=== PATIENT | female | born 1990 | race African-American/Black ===

== ENCOUNTER 2017-09-03 23:07 | Emergency (ER) | payer MEDICAID ==
[~2017-09-03] VITALS: Ht 172.7 cm; Wt 68.0 kg
[2017-09-03] MEDS ORDERED: FAMOTIDINE 20MG/2ML VIAL IV STA (23:54)
[2017-09-03] MEDS ORDERED: SODIUM CHLORIDE 0.9% 1,000 ML IV ONE (23:54)
[2017-09-03] MEDS ORDERED: MAGNESIUM/ALUMINUM HYDROXIDE/SIMETHICONE 30ML UDC PO STA (23:54)
[2017-09-04] MEDS ORDERED: ONDANSETRON HCL 4MG/2ML VIAL IV ONE
[2017-09-04 00:19] LABS: CLARITY URINE CLEAR (CLEAR); COLOR URINE YELLOW (YELLOW); KETONES URINE 3+ (NEGATIVE); LEUKOCYTE ESTERASE URINE NEGATIVE (NEGATIVE); NITRITE URINE NEGATIVE (NEGATIVE); OCCULT BLOOD URINE NEGATIVE (NEGATIVE); PH URINE >=9.0 (4.5-8.0); PROTEIN URINE NEGATIVE (NEGATIVE); SPECIFIC GRAVITY URINE 1.025 (1.005-1.030); UROBILINOGEN URINE 0.2 E.U./dL (0.2-1.0)
[2017-09-04 00:33] LABS: *AMPHETAMINES SCREEN URINE NEGATIVE (NEGATIVE); *BARBITURATES SCREEN URINE NEGATIVE (NEGATIVE); *BENZODIAZEPINES SCREEN URINE NEGATIVE (NEGATIVE); *COCAINE SCREEN URINE NEGATIVE (NEGATIVE); METHADONE URINE SCREEN NEGATIVE (NEGATIVE); PHENCYCLIDINE URINE SCREEN NEGATIVE (NEGATIVE)
[2017-09-04 00:42] LABS: BASOPHILS % 0.6 % (0.0-2.0); EOSINOPHILS % 0.2 % (0.0-5.0); HEMATOCRIT. 40.3 % (36.0-48.0); HEMOGLOBIN. 13.4 g/dL (12.0-16.0); LYMPHOCYTES % 21.9 % (20.0-50.0); MEAN CORPUSCULAR HEMOGLOBIN 29.3 pg (28.0-32.0); MEAN CORPUSCULAR VOLUME 88.1 fL (81.0-99.0); MEAN PLATELET VOLUME 10.2 fl (7.4-10.4); MONOCYTES % 6.7 % (2.0-8.0); NEUTROPHILS % 70.6 % (40.0-76.0); PLATELET 168 x1000/uL (130-400); RED BLOOD CELL COUNT 4.58 mill/uL (4.2-5.4); RED CELL DISTRIBUTION WIDTH 13.9 % (11.6-14.6)
[2017-09-04 00:42] LABS: CANNABINOID URINE SCREEN PRESUMTIVE POSITIVE (NEGATIVE); OPIATES URINE SCREEN PRESUMTIVE POSITIVE (NEGATIVE)
[2017-09-04 00:44] LABS: CHLORIDE 108 mEq/L (98-107)
[2017-09-04 00:47] LABS: INR 1.1; PROTHROMBIN TIME 11.8 sec (9.4-11.6)
[2017-09-04] MEDS ORDERED: HALOPERIDOL 2MG TABLET PO NR (01:15)
[2017-09-04] MEDS ORDERED: MORPHINE SULFATE 4 MG/ML CPJ (NOT FOR IM USE) IV NR (01:15)
[2017-09-04 02:45] VITALS: BP 125/85
== END 2017-09-04 02:48 | disposition home or self-care (01) ==
LOC: ER 23:07
DX: K29.00 Acute gastritis without bleeding (principal); F12.10 Cannabis abuse, uncomplicated; F19.10 Other psychoactive substance abuse, uncomplicated
CPT/HCPCS: 36415; 80053; 80305; 81003; 81025; 83690; 85025; 85610; 93005; 96361; 96374; 96375; 99285; J2270; J2405; J3490; J7030; Z7610

== ENCOUNTER 2017-09-04 04:49 | Emergency (ER) | payer MEDICAID ==
[~2017-09-04] VITALS: Ht 170.2 cm; Wt 78.0 kg
[2017-09-04] MEDS ORDERED: MORPHINE SULFATE 4 MG/ML CPJ (NOT FOR IM USE) IV STA (10:11)
[2017-09-04] MEDS ORDERED: ONDANSETRON HCL 4MG/2ML VIAL IV STA (10:11)
[2017-09-04] MEDS ORDERED: SODIUM CHLORIDE 0.9% 1,000 ML IV ONE (10:11)
[2017-09-04] MEDS ORDERED: KETOROLAC 30MG/ML VIAL IV STA (10:11)
[2017-09-04] MEDS ORDERED: FAMOTIDINE 20MG/2ML VIAL IV STA (10:11)
[2017-09-04] MEDS ORDERED: MAGNESIUM/ALUMINUM HYDROXIDE/SIMETHICONE 30ML UDC PO STA (10:11)
[2017-09-04 10:47] LABS: BASOPHILS % 0.4 % (0.0-2.0); CHLORIDE 103 mEq/L (98-107); EOSINOPHILS % 0.1 % (0.0-5.0); HEMATOCRIT. 43.8 % (36.0-48.0); HEMOGLOBIN. 14.5 g/dL (12.0-16.0); LYMPHOCYTES % 12.1 % (20.0-50.0); MEAN CORPUSCULAR HEMOGLOBIN 28.6 pg (28.0-32.0); MEAN CORPUSCULAR VOLUME 86.1 fL (81.0-99.0); MONOCYTES % 3.1 % (2.0-8.0); NEUTROPHILS % 84.3 % (40.0-76.0); PLATELET 196 x1000/uL (130-400); RED BLOOD CELL COUNT 5.08 mill/uL (4.2-5.4); RED CELL DISTRIBUTION WIDTH 13.8 % (11.6-14.6)
[2017-09-04 10:52] LABS: ETHANOL BLOOD < 10 mg/dL
[2017-09-04 10:54] LABS: INR 1.1; PROTHROMBIN TIME 11.2 sec (9.4-11.6)
[2017-09-04 10:57] LABS: CLARITY URINE CLEAR (CLEAR); COLOR URINE YELLOW (YELLOW); KETONES URINE 3+ (NEGATIVE); LEUKOCYTE ESTERASE URINE NEGATIVE (NEGATIVE); NITRITE URINE NEGATIVE (NEGATIVE); OCCULT BLOOD URINE NEGATIVE (NEGATIVE); PH URINE 5.5 (4.5-8.0); PROTEIN URINE NEGATIVE (NEGATIVE); SPECIFIC GRAVITY URINE 1.025 (1.005-1.030); UROBILINOGEN URINE 0.2 E.U./dL (0.2-1.0)
[2017-09-04 11:12] LABS: HCG SCREEN NEGATIVE
[2017-09-04 14:05] VITALS: BP 121/70
== END 2017-09-04 15:06 | disposition home or self-care (01) ==
LOC: ER 10:40
DX: K29.70 Gastritis, unspecified, without bleeding (principal); E86.0 Dehydration; F12.10 Cannabis abuse, uncomplicated; F13.10 Sedative, hypnotic or anxiolytic abuse, uncomplicated
CPT/HCPCS: 36415; 71045; 76705; 80053; 81003; 83690; 84703; 85025; 85610; 96361; 96374; 96375; 99285; G0482; J1885; J2270; J3490; J7030; Z7610

== ENCOUNTER 2018-04-01 22:00 | Emergency (ER) | payer MEDICAID ==
[~2018-04-01] VITALS: Ht 165.1 cm; Wt 63.0 kg
[2018-04-02 00:59] LABS: BASOPHILS % 0.6 % (0.0-2.0); EOSINOPHILS % 0.6 % (0.0-5.0); HEMATOCRIT. 36.8 % (36.0-48.0); HEMOGLOBIN. 12.2 g/dL (12.0-16.0); LYMPHOCYTES % 25.9 % (20.0-50.0); MEAN CORPUSCULAR HEMOGLOBIN 28.9 pg (28.0-32.0); MEAN CORPUSCULAR VOLUME 87.3 fL (81.0-99.0); MEAN PLATELET VOLUME 9.1 fl (7.4-10.4); MONOCYTES % 9.1 % (2.0-8.0); NEUTROPHILS % 63.8 % (40.0-76.0); PLATELET 197 x1000/uL (130-400); RED BLOOD CELL COUNT 4.21 mill/uL (4.2-5.4); RED CELL DISTRIBUTION WIDTH 13.5 % (11.6-14.6)
[2018-04-02 01:06] LABS: CHLORIDE 104 mEq/L (98-107)
[2018-04-02 01:23] LABS: B-HCG QUANTITATIVE 146083 mIU/mL (<3)
[2018-04-02 01:56] VITALS: BP 98/58
== END 2018-04-02 01:59 | disposition home or self-care (01) ==
LOC: ER 22:00
DX: O20.0 Threatened abortion (principal); Z3A.01 Less than 8 weeks gestation of pregnancy; O30.001 Twin pregnancy, unspecified number of placenta and unspecified number of amniotic sacs, first trimester; O99.321 Drug use complicating pregnancy, first trimester; F12.10 Cannabis abuse, uncomplicated
CPT/HCPCS: 36415; 76802; 76810; 81025; 84702; 86850; 86900; 99285

== ENCOUNTER 2018-04-16 18:45 | Emergency (ER) | payer MEDICAID ==
[~2018-04-16] VITALS: Ht 172.7 cm; Wt 70.0 kg
[2018-04-16] MEDS ORDERED: SODIUM CHLORIDE 0.9% 1,000 ML IV ONE (19:22)
[2018-04-16] MEDS ORDERED: ACETAMINOPHEN 325MG TABLET PO PRN (19:30)
[2018-04-16] MEDS ORDERED: ONDANSETRON HCL 4MG/2ML INJ IV ONE (19:30)
[2018-04-16 20:09] LABS: BASOPHILS % 0.3 % (0.0-2.0); EOSINOPHILS % 0.2 % (0.0-5.0); HEMATOCRIT. 39.3 % (36.0-48.0); HEMOGLOBIN. 13.1 g/dL (12.0-16.0); LYMPHOCYTES % 14.8 % (20.0-50.0); MEAN CORPUSCULAR HEMOGLOBIN 29.2 pg (28.0-32.0); MEAN CORPUSCULAR VOLUME 87.1 fL (81.0-99.0); MEAN PLATELET VOLUME 9.5 fl (7.4-10.4); MONOCYTES % 8.3 % (2.0-8.0); NEUTROPHILS % 76.4 % (40.0-76.0); PLATELET 225 x1000/uL (130-400); RED BLOOD CELL COUNT 4.51 mill/uL (4.2-5.4); RED CELL DISTRIBUTION WIDTH 13.4 % (11.6-14.6)
[2018-04-16 20:12] LABS: CHLORIDE 105 mEq/L (98-107)
[2018-04-16 23:20] VITALS: BP 120/77
== END 2018-04-16 23:23 | disposition home or self-care (01) ==
LOC: ER 18:45
DX: O21.0 Mild hyperemesis gravidarum (principal); O20.0 Threatened abortion; O30.001 Twin pregnancy, unspecified number of placenta and unspecified number of amniotic sacs, first trimester; Z3A.10 10 weeks gestation of pregnancy
CPT/HCPCS: 36415; 76801; 80048; 85025; 96361; 96374; 99285; J2405; J7030

== ENCOUNTER 2018-07-18 15:46 | Observation (INO) | payer MEDICAID ==
[~2018-07-18] VITALS: Ht 170.2 cm; Wt 77.1 kg
[2018-07-18] MEDS ORDERED: ONDA8TAB6 PO (16:21)
[2018-07-18] MEDS ORDERED: ONDANSETRON HCL 4MG/2ML INJ IV ONE (16:30)
[2018-07-18] MEDS ORDERED: LACTATED RINGERS 1,000 ML IV SCH (16:45)
[2018-07-18 17:09] LABS: BASOPHILS % 0.3 % (0.0-2.0); EOSINOPHILS % 0.1 % (0.0-5.0); HEMATOCRIT. 36.7 % (36.0-48.0); HEMOGLOBIN. 12.3 g/dL (12.0-16.0); LYMPHOCYTES % 9.5 % (20.0-50.0); MEAN CORPUSCULAR VOLUME 86.8 fL (81.0-99.0); MEAN PLATELET VOLUME 9.6 fl (7.4-10.4); MONOCYTES % 5.3 % (2.0-8.0); NEUTROPHILS % 84.8 % (40.0-76.0); PLATELET 205 x1000/uL (130-400); RED BLOOD CELL COUNT 4.24 mill/uL (4.2-5.4); RED CELL DISTRIBUTION WIDTH 13.7 % (11.6-14.6)
[2018-07-18 17:15] LABS: CHLORIDE 104 mEq/L (98-107)
[2018-07-18 17:21] LABS: PARTIAL THROMBOPLASTIN TIME 26.1 sec (23.4-31.0); PROTHROMBIN TIME 9.6 sec (9.1-11.1)
== END 2018-07-18 18:30 | disposition home or self-care (01) ==
LOC: 8 EST LDRP 15:46
PROVIDERS: ADMIT Obstetrics & Gynecology; ATTEND Obstetrics & Gynecology
DX: O21.2 Late vomiting of pregnancy (principal); O26.892 Other specified pregnancy related conditions, second trimester; R10.30 Lower abdominal pain, unspecified; Z3A.23 23 weeks gestation of pregnancy
CPT/HCPCS: 36415; 80053; 85025; 85610; 85730; 96361; 96374; 99281; G0378; J2405; 96360

== ENCOUNTER 2022-10-22 05:33 | Emergency (ER) | payer MEDICAID, OTHER ==
[~2022-10-22] VITALS: Ht 167.6 cm; Wt 65.0 kg
[~2022-10-22 05:33] MED LIST: ONDA8TAB6 PO
[2022-10-22] MEDS ORDERED: DICYCLOMINE 10 MG/5 ML ORAL SYR PO STA (05:36)
[2022-10-22] MEDS ORDERED: MAGNESIUM/ALUMINUM HYDROXIDE/SIMETHICONE 30ML UDC PO STA (05:36)
[2022-10-22] MEDS ORDERED: MORPHINE SULFATE 4 MG/ML CPJ (NOT FOR IM USE) IV STA (05:36)
[2022-10-22] MEDS ORDERED: ONDANSETRON HCL 4MG/2ML INJ IV STA (05:36)
[2022-10-22] MEDS ORDERED: VISCOUS LIDOCAINE 2% 15 ML UDC PO STA (05:36)
[2022-10-22 06:36] LABS: BASOPHILS % 0.5 % (0.0-2.0); HEMATOCRIT. 41.5 % (36.0-48.0); HEMOGLOBIN. 14.2 g/dL (12.0-16.0); LYMPHOCYTES % 7.7 % (20.0-50.0); MEAN CORPUSCULAR HEMOGLOBIN 29.7 pg (28.0-32.0); MEAN PLATELET VOLUME 9.7 fl (7.4-10.4); MONOCYTES % 4.3 % (2.0-8.0); NEUTROPHILS % 87.5 % (40.0-76.0); PLATELET 211 x1000/uL (130-400); RED BLOOD CELL COUNT 4.77 mill/uL (4.2-5.4); RED CELL DISTRIBUTION WIDTH 14.4 % (11.6-14.6)
[2022-10-22 06:44] LABS: CHLORIDE 108 mEq/L (98-107)
[2022-10-22 06:47] LABS: INR 1.1; PROTHROMBIN TIME 12.1 sec (9.6-11.0)
[2022-10-22 06:49] LABS: HCG SCREEN NEGATIVE
[2022-10-22] MEDS ORDERED: KETOROLAC 30MG/ML VIAL IV ONE (07:00)
[2022-10-22] MEDS ORDERED: MORPHINE SULFATE 4 MG/ML CPJ (NOT FOR IM USE) IV ONE (08:30)
[2022-10-22] MEDS ORDERED: SODIUM CHLORIDE 0.9% 1,000 ML IV ONE (10:15)
[2022-10-22 11:35] VITALS: BP 141/80
== END 2022-10-22 13:44 | disposition short-term general hospital (02) ==
LOC: ER 05:33 → CANBEDREQ 09:12 → ER 13:44
DX: R10.84 Generalized abdominal pain (principal); R11.2 Nausea with vomiting, unspecified; D64.9 Anemia, unspecified; F12.10 Cannabis abuse, uncomplicated; Z20.822 Contact with and (suspected) exposure to COVID-19
CPT/HCPCS: 36415; 74176; 80053; 83690; 84703; 85025; 85610; 87426; 96374; 96375; 96376; 99285; C9803; J1885; J2270; J2405; J7030; Z7610

== ENCOUNTER 2025-04-17 17:27 | Inpatient (IN) | payer MEDICAID ==
[~2025-04-17] VITALS: Ht 170.2 cm; Wt 90.7 kg
[~2025-04-17 17:27] MED LIST changes: -ONDA8TAB6 PO; +PANT40TA51 PO; +SUCR1TAB MT
[2025-04-17 17:29] VITALS: O2SAT 99
[2025-04-17] MEDS ORDERED: HYDROMORPHONE HCL/PF 2MG/ML INJ IV ONE (18:00)
[2025-04-17] MEDS: SODIUM CHLORIDE 0.9% 1,000 ML IV ONE ×2 (18:23→23:27)
[2025-04-17] MEDS: ONDANSETRON HCL 4MG/2ML INJ IV ONE (18:23)
[2025-04-17] MEDS: HYDROMORPHONE HCL/PF 1MG/ML INJ IV SCH (18:45)
[2025-04-17 20:39] LABS: BASOPHILS % 0.5 % (0.0-2.0); EOSINOPHILS % 0.1 % (0.0-5.0); HEMATOCRIT. 35.9 % (36.0-48.0); HEMOGLOBIN. 11.6 g/dL (12.0-16.0); LYMPHOCYTES % 24.8 % (20.0-50.0); MEAN PLATELET VOLUME 9.7 fl (7.4-10.4); MONOCYTES % 7.4 % (2.0-8.0); NEUTROPHILS % 67.2 % (40.0-76.0); PLATELET 189 x1000/uL (130-400); RED BLOOD CELL COUNT 4.08 mill/uL (4.2-5.4); RED CELL DISTRIBUTION WIDTH 13.9 % (11.6-14.6)
[2025-04-17 20:52] LABS: CREATININE 0.8 mg/dL (0.6-1.0); UREA NITROGEN BLOOD 6 mg/dL (9-23)
[2025-04-17 20:54] LABS: ASPARTATE AMINOTRANSFERASE 21 IU/L (<34); BILIRUBIN TOTAL 0.3 mg/dL (0.1-1.0); PHOSPHORUS 2.4 mg/dL (2.5-4.9); PROTEIN TOTAL 6.1 g/dL (6.0-8.3)
[2025-04-17 20:55] LABS: HCG SCREEN NEGATIVE
[2025-04-17] MEDS: HALOPERIDOL LACTATE 5MG/ML VIAL IM ONE (23:53)
[2025-04-18] VITALS (7 sets, daily range): BP systolic 107–122; BP diastolic 66–80; PULSE 56–86; RESP 12–18; TEMP 35.9–37; O2SAT 98–100
[2025-04-18] MEDS ORDERED: GUAIFENESIN 200MG/10ML SUGAR FREE UDC PO PRN (00:30)
[2025-04-18] MEDS ORDERED: ONDANSETRON HCL 4MG/2ML INJ IV PRN (00:30)
[2025-04-18] MEDS ORDERED: IPRATROPIUM/ALBUTEROL 0.5-3(2.5)MG/3ML NEB HHN PRN (00:30)
[2025-04-18] MEDS ORDERED: DOCUSATE SODIUM 100MG CAPSULE PO PRN (00:30)
[2025-04-18] MEDS ORDERED: CLONIDINE 0.1MG TABLET PO PRN (00:30)
[2025-04-18] MEDS ORDERED: ACETAMINOPHEN 325MG TABLET PO PRN (00:30)
[2025-04-18] MEDS ORDERED: MAGNESIUM/ALUMINUM HYDROXIDE/SIMETHICONE 30ML UDC PO PRN (00:30)
[2025-04-18] MEDS: PANTOPRAZOLE SODIUM 40 MG/VIAL IV SCH ×2 (02:14→09:00)
[2025-04-18] MEDS: MAGNESIUM 2 G PREMIX 50 ML IV NR (02:33)
[2025-04-18] MEDS: POTASSIUM PHOSPHATE 30 MMOL in DEXT 5% WATER 490 ML IV NR (04:43)
[2025-04-18] MEDS: ACETAMINOPHEN 325MG TABLET PO PRN (05:31)
[2025-04-18] MEDS: POTASSIUM CHLORIDE 20MEQ TABLET SR PO NR ×2 (05:59→18:26)
[2025-04-18] MEDS: DEXT 5%/0.9% NACL 1,000 ML IV SCH (05:59)
[2025-04-18] MEDS: SODIUM PHOSPHATE 20 MMOL in DEXT 5% WATER 243.3333 ML IV NR (08:00)
[2025-04-18 12:31] LABS: CLARITY URINE CLEAR (CLEAR); COLOR URINE YELLOW (YELLOW); GLUCOSE URINE NEGATIVE (NEGATIVE); KETONES URINE 1+ (NEGATIVE); LEUKOCYTE ESTERASE URINE 1+ (NEGATIVE); NITRITE URINE NEGATIVE (NEGATIVE); OCCULT BLOOD URINE 3+ (NEGATIVE); PH URINE 5.5 (4.5-8.0); PROTEIN URINE NEGATIVE (NEGATIVE); SPECIFIC GRAVITY URINE 1.027 (1.005-1.030); UROBILINOGEN URINE 1.0 E.U./dL (0.2-1.0)
[2025-04-18 13:24] LABS: HYALINE CASTS URINE 0-5 /lpf; SQUAMOUS EPITHELIAL CELL URINE 3+ /lpf (RARE/1+)
[2025-04-18 13:33] LABS: TRICHOMONAS URINE FEW
[2025-04-18 13:35] LABS: BACTERIA URINE 1+
[2025-04-18] MEDS ORDERED: LORAZEPAM 0.5MG TABLET PO PRN (14:45)
[2025-04-18] MEDS: THIAMINE HCL 100MG TABLET PO SCH (15:55)
[2025-04-18] MEDS: TRAMADOL 50MG TABLET PO PRN (17:31)
[2025-04-18 17:34] LABS: PLATELET 187 x1000/uL (130-400); RED BLOOD CELL COUNT 4.35 mill/uL (4.2-5.4); RED CELL DISTRIBUTION WIDTH 13.9 % (11.6-14.6)
[2025-04-18 17:49] LABS: CREATININE 0.8 mg/dL (0.6-1.0)
[2025-04-18 17:50] LABS: UREA NITROGEN BLOOD 5 mg/dL (9-23)
[2025-04-18 17:52] LABS: PHOSPHORUS 2.7 mg/dL (2.5-4.9)
[2025-04-18 17:54] LABS: FOLIC ACID (FOLATE) SERUM > 20.00 ng/mL (>5.38)
[2025-04-18 17:56] LABS: VITAMIN B12 SERUM 527 pg/mL (211-911)
[2025-04-18] MEDS ORDERED: POTASSIUM CHLORIDE 20MEQ/PACKET PO ONE (18:15)
[2025-04-18] MEDS: KETOROLAC 15MG/ML VIAL IV PRN (19:45)
[2025-04-18] MEDS: SUCRALFATE 1G TABLET PO SCH (20:26)
[2025-04-18] MEDS: PANTOPRAZOLE 40MG DR TABLET PO SCH (20:26)
[2025-04-19] VITALS: BP 107/61; PULSE 51; RESP 18; TEMP 36.4; O2SAT 100
[2025-04-19 08:00] VITALS: BP 113/85; PULSE 63; RESP 18; TEMP 36.3; O2SAT 100
[2025-04-19 09:48] LABS: *AMPHETAMINES SCREEN URINE NEGATIVE (NEGATIVE); *BARBITURATES SCREEN URINE NEGATIVE (NEGATIVE); *BENZODIAZEPINES SCREEN URINE NEGATIVE (NEGATIVE)
[2025-04-19 09:49] LABS: *COCAINE SCREEN URINE NEGATIVE (NEGATIVE); CANNABINOID URINE SCREEN PRESUMPTIVE POSITIVE (NEGATIVE); ECSTASY MDMA SCREEN URINE NEGATIVE (NEGATIVE); METHADONE URINE SCREEN NEGATIVE (NEGATIVE); OPIATES URINE SCREEN PRESUMPTIVE POSITIVE (NEGATIVE); PHENCYCLIDINE URINE SCREEN NEGATIVE (NEGATIVE)
[2025-04-19 12:00] VITALS: BP 115/76; PULSE 85; RESP 18; TEMP 36.4; O2SAT 100
[2025-04-19 13:40] LABS: BASOPHILS % 1.0 % (0.0-2.0); EOSINOPHILS % 1.3 % (0.0-5.0); HEMATOCRIT. 35.2 % (36.0-48.0); HEMOGLOBIN. 11.3 g/dL (12.0-16.0); LYMPHOCYTES % 39.3 % (20.0-50.0); MEAN PLATELET VOLUME 9.9 fl (7.4-10.4); MONOCYTES % 7.9 % (2.0-8.0); NEUTROPHILS % 50.5 % (40.0-76.0); PLATELET 174 x1000/uL (130-400); RED BLOOD CELL COUNT 3.92 mill/uL (4.2-5.4); RED CELL DISTRIBUTION WIDTH 14.0 % (11.6-14.6)
[2025-04-19 16:00] VITALS: BP 107/76; PULSE 64; RESP 18; TEMP 36.4; O2SAT 100
[2025-04-19 17:00] VITALS: BP 107/76; PULSE 86; RESP 18; TEMP 97.6
[2025-04-19 17:46] LABS: CREATININE 0.9 mg/dL (0.6-1.0); TRIGLYCERIDE 98 mg/dL (0-150); UREA NITROGEN BLOOD 6 mg/dL (9-23)
[2025-04-19 17:47] LABS: LDL CHOLESTEROL 112 mg/dL (5-100)
[2025-04-19 17:48] LABS: PHOSPHORUS 2.9 mg/dL (2.5-4.9)
[2025-04-19 17:51] LABS: T4 FREE 1.30 ng/dL (0.89-1.76)
== END 2025-04-19 18:17 | disposition home or self-care (01) | DRG 249 ==
LOC: ER 17:27 → 6EST 23:33 → EDBEDREQTM 04-18 00:03 → EDBEDREQ 04-18 00:05 → ENRESERV 04-18 00:30
PROVIDERS: ADMIT Student in an Organized Health Care Education/Training Program; ATTEND Student in an Organized Health Care Education/Training Program
DX: R11.16 Cannabis hyperemesis syndrome (principal); E83.39 Other disorders of phosphorus metabolism; D64.9 Anemia, unspecified; K21.9 Gastro-esophageal reflux disease without esophagitis; E83.51 Hypocalcemia; E83.42 Hypomagnesemia; E87.6 Hypokalemia; G89.29 Other chronic pain
CPT/HCPCS: 36415; 74018; 80048; 80053; 80061; 80305; 81003; 82607; 82728; 82746; 83735; 84100; 84439; 84443; 84703; 85025; 85027; 93005; 96361; 96374; 96375; J1171; J1630; J1885; J2405; J2470; J3475; J3490; J7030; J7042; J7060